=== PATIENT | female | born 1950 | race Asian ===

== ENCOUNTER 2018-03-13 09:55 | Emergency (ER) | payer BC ==
[2018-03-13] MEDS: SOD CHLORIDE 0.9% 1,000 ML IV (10:24)
[2018-03-13] MEDS: IPRATROPIUM (NEB) 0.5 MG/2.5 ML AMP INH (10:34)
[2018-03-13] MEDS: ALBUTEROL 0.083% (NEB) 2.5 MG/3 ML AMP HHN (10:34)
[2018-03-13 10:36] LABS: ADD MAN DIFF? NO
[2018-03-13] MEDS: ACETAMINOPHEN 325 MG TAB PO (10:38)
[2018-03-13] MEDS: KETOROLAC 15 MG INJ IV (10:38)
[2018-03-13 10:41] LABS: URINE BLOOD (Dip) POC 3+ (NEGATIVE); URINE KETONES (Dip) POC Negative (NEGATIVE); URINE LEUKOCYTE EST (Dip) POC Negative (NEGATIVE); URINE NITRITE (Dip) POC Negative (NEGATIVE); URINE TOTAL PROTEIN POC 1+ (NEGATIVE)
[2018-03-13 10:42] LABS: WHITE BLOOD COUNT 6.5 10^3/ul (4.8-10.8)
[2018-03-13 10:42] LABS: BASOPHILS % 0.2 % (0.0-2.0); HEMATOCRIT 37.4 % (37.0-47.0); HEMOGLOBIN 12.1 g/dl (12.0-16.0); LYMPHOCYTES # 1.3 10^3/ul (0.8-2.9); LYMPHOCYTES % 20.4 % (15.0-51.0); MEAN CORPUSCULAR HGB CONC 32.4 g/dl (32.0-37.0); MEAN CORPUSCULAR VOLUME 92.6 fl (82.0-101.0); MEAN PLATELET VOLUME 9.7 fl (7.4-10.4); MONOCYTE # 0.8 10^3/ul (0.3-0.9); MONOCYTES % 12.4 % (0.0-11.0); NEUTROPHIL # 4.4 10^3/ul (1.6-7.5); NEUTROPHILS % 66.7 % (39.0-77.0); PLATELET COUNT 228 10^3/UL (140-415); RED BLOOD COUNT 4.04 10^6/ul (4.20-5.40); RED CELL DISTRIBUTION WIDTH 12.3 % (11.5-14.5)
[2018-03-13 10:55] LABS: LACTIC ACID 2.3 mmol/L (0.5-2.0)
[2018-03-13] MEDS: VANCOMYCIN 1 GM (PMX) 250 ML IVPB (11:00)
[2018-03-13 11:05] LABS: ANION GAP 18 (8-16); BLOOD UREA NITROGEN 12 mg/dl (7-20); CALCIUM 9.1 mg/dl (8.4-10.2); CARBON DIOXIDE 26 mmol/L (21-31); CHLORIDE 103 mmol/L (97-110); CREATININE 0.78 mg/dl (0.44-1.00); GLUCOSE 175 mg/dl (70-220); POTASSIUM 3.8 mmol/L (3.5-5.1); SODIUM 143 mmol/L (135-144)
[2018-03-13] MEDS: CEFEPIME 2GM/50 ML (PMX) 50 ML IVPB (11:18)
[2018-03-13] MEDS: SODIUM CHLORIDE 0.9% 1L BAG IV* (11:18)
[2018-03-13 14:02] LABS: LACTIC ACID 2.9 mmol/L (0.5-2.0)
== END 2018-03-13 15:24 | disposition home or self-care (01) ==
LOC: FTE 09:55 → E/R 15:24
DX: R50.9 Fever, unspecified (principal); R09.89 Other specified symptoms and signs involving the circulatory and respiratory systems; R74.0 Nonspecific elevation of levels of transaminase and lactic acid dehydrogenase [LDH]
CPT/HCPCS: 36415; 71046; 80048; 81003; 81025; 83605; 85025; 87040; 94664; 96374; 96375; 99284-25

== ENCOUNTER 2019-04-05 22:51 | Emergency (ER) | payer BC | END 2019-04-05 23:06 | disposition home or self-care (01) | LOC: E/R 22:51 | DX: N30.00 Acute cystitis without hematuria (principal) | CPT/HCPCS: 99283 ==